=== PATIENT | male | born 1965 | race Caucasian/White ===

== ENCOUNTER 2017-01-17 20:01 | Emergency (ER) | payer BC, OTHER ==
[~2017-01-17] VITALS: Ht 177.8 cm; Wt 135.0 kg
[2017-01-17 20:05] VITALS: Ht 177.8 cm; Wt 135.0 kg
[2017-01-17] MEDS ORDERED: NICARDipine HCL 30 MG CAPSULE PO ONE ×2 (21:30→22:30)
[2017-01-17 21:47] LABS: BASOPHIL # 0.1 10^3/ul (0.0-0.1); BASOPHILS % 0.6 % (0.0-2.0); EOSINOPHILS # 0.3 10^3/ul (0.0-0.5); EOSINOPHILS % 3.9 % (0.0-7.0); HEMATOCRIT 40.1 % (42.0-52.0); HEMOGLOBIN 13.9 g/dl (14.0-18.0); LYMPHOCYTES # 1.9 10^3/ul (0.8-2.9); LYMPHOCYTES % 21.7 % (15.0-51.0); MEAN CORPUSCULAR HEMOGLOBIN 30.4 pg (29.0-33.0); MEAN CORPUSCULAR HGB CONC 34.7 g/dl (32.0-37.0); MEAN CORPUSCULAR VOLUME 87.7 fl (82.0-101.0); MEAN PLATELET VOLUME 11.7 fl (7.4-10.4); MONOCYTE # 0.7 10^3/ul (0.3-0.9); MONOCYTES % 7.7 % (0.0-11.0); NEUTROPHIL # 5.7 10^3/ul (1.6-7.5); NEUTROPHILS % 65.5 % (39.0-77.0); PLATELET COUNT 251 10^3/UL (140-415); RED BLOOD COUNT 4.57 10^6/ul (4.70-6.10); RED CELL DISTRIBUTION WIDTH 12.8 % (11.5-14.5); WHITE BLOOD COUNT 8.7 10^3/ul (4.8-10.8)
--- NOTE | 2017-01-17 21:55 | RADRPT ---
PROCEDURE: XR Chest. CLINICAL INDICATION: Chest pain. TECHNIQUE: Single frontal view of the chest. COMPARISON: None. FINDINGS: Cardiomegaly. Hypoinflated lungs and patient body habitus accentuate pulmonary vascular markings. The lungs are clear. No signs of pleural fluid or pneumothorax are seen. The osseous structures and soft tissues are unremarkable. IMPRESSION: No evidence for active cardiopulmonary disease. RPTAT: [facility] Physician Leticia Date Time Electronically viewed and signed by Jimbo Anderson Physician on 01/17/2017 21:55 RS/
[2017-01-17 22:12] LABS: ANION GAP 19 (8-16); BLOOD UREA NITROGEN 14 mg/dl (7-20); CALCIUM 9.2 mg/dl (8.4-10.2); CARBON DIOXIDE 27 mmol/L (21-31); CHLORIDE 101 mmol/L (97-110); CREATININE 0.91 mg/dl (0.61-1.24); GLUCOSE 105 mg/dl (70-220); POTASSIUM 3.6 mmol/L (3.5-5.1); SODIUM 143 mmol/L (135-144)
[2017-01-17 22:27] VITALS: TEMP 98
[2017-01-17 22:32] LABS: TROPONIN-I < 0.012 ng/ml (0.00-0.12)
[2017-01-17] MEDS ORDERED: HYDR-906 PO (22:38)
[2017-01-17] MEDS ORDERED: METH750T93 PO (22:38)
[2017-01-17] MEDS ORDERED: AMLO-218 PO (22:38)
--- NOTE | 2017-01-17 22:43 | ERD ---
ER Documentation Chief Complaint Date/Time DATE: 01/17/17 TIME: 22:39 Chief Complaint c/o lightheadedness and increased BP since yesterday denies [place] HPI This is a 51-year-old male complains of feeling lightheaded today with slight blurry vision. He checked his blood pressure at home with readings of 190/103. Patient has had no chest pain shortness of breath weakness no focal neurological complaints such as speech change or numbness or weakness. Is also complaining of 3 or 4 months of pain tingling to his right fifth and fourth digit and his right medial forearm. The patient states is worse at night at times. He has no neck pain no symptoms in the face or leg. He says at times the middle and index finger can become tingly as well but the fifth and fourth digit are chronically tingly ROS All systems reviewed and are negative except as per history of present illness. Medications Home Meds Active Scripts Methocarbamol* (Robaxin*) 750 Mg Tablet, 750 MG PO TID, #20 TAB Prov:RUBEN MIKESTOLOS A. DO 01/17/17 Hydrocodone/Acetaminophen ([place] 5-325 Tablet) 1 Each Tablet, 1 TAB PO Q6H Y for PAIN, #20 TAB Prov:LEKKOS,APOSTOLOS A. DO 01/17/17 Amlodipine Besylate* (Norvasc*) 10 Mg Tablet, 10 MG PO DAILY, #30 TAB Prov:LEKKOS,APOSTOLOS A. DO 01/17/17 Allergies Allergies: Coded Allergies: No Known Allergy (Unverified , 01/17/17) PMhx/Soc Medical and Surgical Hx: pt denies Medical Hx, pt denies Surgical Hx Hx Alcohol Use: Yes (Daily Late nigt wine.) Hx Substance Use: Yes (Marijuna ) Hx Tobacco Use: No Smoking Status: Never smoker FmHx Family History: No coronary disease Physical Exam Vitals Vital Signs Date Time Temp Pulse Resp B/P Pulse Ox O2 Delivery O2 Flow Rate FiO2 01/17/17 22:27 98.0 85 20 139/100 98 Room Air 01/17/17 21:30 98.0 83 18 142/107 96 Room Air 01/17/17 20:05 97.0 96 20 195/110 96 Physical Exam Const: Well-developed, well-nourished Head: Atraumatic, normocephalic Eyes: Normal Conjunctiva, PERRLA, EOMI, normal sclera, no nystagmus ENT: Normal External Ears, Nose and Mouth, moist mucus membranes. Neck: Full range of motion. No meningismus, no lymphadenopathy. Resp: Clear to auscultation bilaterally, no wheezing, rhonchi, rales Cardio: Regular rate and rhythm, no murmurs, S1 S2 present Abd: Soft, non tender x 4, non distended. Normal bowel sounds, no guarding or rebound, no pulsitile abdominal masses or bruits Skin: No petechiae or rashes, no ecchymosis , no maculopapular rash Back: No midline or flank tenderness Ext: No cyanosis, or edema, FROM x 4, normal inspection, neurovascularly intact x 4 Neur: Awake and alert, STR 5/5 x 4, sensation intact x 4, subjective tingling to the right fifth and fourth digit, with head rotated left and right arm extended the patient's hand symptoms and forearm symptoms exacerbatethis is consistent with stretching of the nerve/nerve injury , no focal findings, cerebellum intact Psych: Normal Mood and Affect Result Diagram: 01/17/17203501/17/172035 Results 24 hrs Laboratory Tests Test 01/17/17 20:36 White Blood Count 8.710^3/ul Red Blood Count 4.5710^6/ul Hemoglobin 13.9g/dl Hematocrit 40.1% Mean Corpuscular Volume 87.7fl Mean Corpuscular Hemoglobin 30.4pg Mean Corpuscular Hemoglobin Concent 34.7g/dl Red Cell Distribution Width 12.8% Platelet Count 38523^3/UL Mean Platelet Volume 11.7fl Neutrophils % 65.5% Lymphocytes % 21.7% Monocytes % 7.7% Eosinophils % 3.9% Basophils % 0.6% Nucleated Red Blood Cells % 0.0/100WBC Neutrophils # 5.710^3/ul Lymphocytes # 1.910^3/ul Monocytes # 0.710^3/ul Eosinophils # 0.310^3/ul Basophils # 0.110^3/ul Nucleated Red Blood Cells # 0.010^3/ul Sodium Level 143mmol/L Potassium Level 3.6mmol/L Chloride Level 101mmol/L Carbon Dioxide Level 27mmol/L Anion Gap 19 Blood Urea Nitrogen 14mg/dl Creatinine 0.91mg/dl Glucose Level 105mg/dl Calcium Level 9.2mg/dl Troponin I < 0.012ng/ml Current Medications Medications (Trade) Dose Ordered Sig/Jacklyn Route PRN Reason Start Time Stop Time Status Last Admin Dose Admin Nicardipine HCl (Cardene) 30 mg ONCE ONCE PO 01/17/17 21:30 01/17/17 21:31 DC 01/17/17 21:35 Nicardipine HCl (Cardene) 30 mg ONCE ONCE PO 01/17/17 22:30 01/17/17 22:31 DC Procedures/MDM EKG: Rate/Rhythm: Normal Sinus Rhythm,NL intervals QRS, ST, QT: NORMAL DE, QRS, QT] Impression: NORMAL EKG Patient was given Cardene 60 mg p.o. and blood pressures come down. Patient has a cervical radiculopathy and he will need to follow-up with his primary get MRI or CT scan of his neck. The patient will be started on Norvasc 10 mg p.o. for blood pressure control patient needs to lose weight and start eating a healthy diet review this with him Departure Diagnosis: Primary Impression: Hypertension Hypertension type: essential hypertension Qualified Code: I10 - Essential hypertension Additional Impression: Cervical radiculopathy Condition: Stable Patient Instructions: High Blood Pressure (Hypertension), Radiculopathy, Cervical CHANI MIKE DO Jan 17, 2017 22:43
[2017-01-17 23:25] VITALS: BP 134/74; PULSE 87; RESP 16
== END 2017-01-17 23:28 | disposition home or self-care (01) ==
LOC: E/R 20:01
DX: I10 Essential (primary) hypertension (principal); M54.12 Radiculopathy, cervical region
CPT/HCPCS: 36415; 71010; 80048; 84484; 85025; 93005